=== PATIENT | male | born 1940 | race Hispanic/Latino ===

== ENCOUNTER 2018-09-22 17:32 | Inpatient (IN) | payer MEDICARE, OTHER ==
[~2018-09-22] VITALS: Ht 165.1 cm; Wt 82.8 kg
[2018-09-22] MEDS ORDERED: MECLIZINE HCL 12.5 MG TAB PO ONE (18:00)
[2018-09-22 19:08] LABS: BILIRUBIN,URINE NEGATIVE (NEGATIVE); CLARITY,URINE CLEAR (CLEAR); COLOR,URINE YELLOW (YELLOW); KETONES,URINE NEGATIVE (NEGATIVE); LEUKOCYTE ESTERASE ,URINE NEGATIVE (NEGATIVE); NITRITE,URINE NEGATIVE (NEGATIVE); PROTEIN,URINE DIPSTICK NEGATIVE (NEGATIVE); URINE UROBILINOGEN 0.2 mg/dL (0.2 - 1)
[2018-09-22 19:10] LABS: INR 0.89; PROTHROMBIN TIME 12.9 seconds (11.9-14.5)
[2018-09-22 19:11] LABS: PARTIAL THROMBOPLASTIN TIME 28.7 seconds (23.8-35.5)
--- NOTE | 2018-09-22 19:15 | Diagnostic Imaging Report ---
Exam: Head CT without contrast History: Blurry vision, unsteady gait Comparison studies: None Technique: Axial images were obtained from the skull base to the vertex. Coronal and sagittal images reconstructed from the axial data. Dose modulation, iterative reconstruction, and/or weight based adjustment of the mA/kV was utilized to reduce the radiation dose to as low as reasonably achievable. Radiation dose: Total DLP: 921 mGy*cm. Estimated effective dose: DLP x 0.015 Intravenous contrast: None Findings: Scalp: No abnormalities. Bones: No fractures, blastic or lytic lesions. Brain sulci: Mildly prominent but age appropriate. Ventricles: Mild compensatory dilatation. No hydrocephalus. Extra-axial spaces: No masses, no fluid collection. Parenchyma: No mass, acute hemorrhage or acute or chronic cortical vascular insults. A few scattered hypodensities in the supratentorial white matter are nonspecific but most compatible with chronic microvascular ischemic changes. Incidental punctate parietal calcification at the vertex without surrounding edema or mass effect compatible may reflect sequela of prior infection/information. Sellar/suprasellar region: No abnormalities. Craniocervical junction: Patent foramen magnum. No Chiari one malformation. Incidental findings: Atherosclerotic calcifications in the carotid siphons. Chronic mildly depressed left orbital floor fracture. IMPRESSION: No acute intracranial abnormalities. Signed by: Dr. Riley Khan M.D. on 09/22/2018 7:12 PM
--- NOTE | 2018-09-22 19:15 | Diagnostic Imaging Report ---
Examination: Single AP view of the chest. COMPARISON: Chest 2 views 08/14/2009 INDICATION: Blurry vision IMPRESSION: 1. Lines and Tubes: None 2. Lungs are well-inflated. Obscuration of the left hemidiaphragm which is similar to prior exam, likely secondary to prominent epicardial fat pad. Recommend chest PA and lateral for better evaluation. Right lung is clear. 3. Enlarged cardiac silhouette. Pulmonary vasculature is normal. 4. No acute bony abnormalities. Signed by: Dr. Shiva Yadav M.D. on 09/22/2018 7:12 PM
[2018-09-22] MEDS ORDERED: LEVOTHYROXINE150 MCG PO (19:19)
[2018-09-22] MEDS ORDERED: SIMVASTATIN20 MG PO (19:19)
[2018-09-22 19:21] LABS: ALANINE AMINOTRANSFERASE 24 IU/L (0-55); ALBUMIN 4.1 g/dL (3.5-5.0); ALBUMIN/GLOBULIN RATIO 1.4 (0.8-2.0); ALKALINE PHOSPHATASE 42 IU/L (40-150); BLOOD UREA NITROGEN 11 mg/dL (7-26); BUN/CREATININE RATIO 11 (6-25); CALCIUM 9.4 mg/dL (8.4-10.2); CARBON DIOXIDE 26 mmol/L (22-29); CHLORIDE 104 mmol/L (98-107); CREATINE KINASE 183 IU/L (30-200); EST GLOMERULAR FILTRATION RATE > 60 ML/MIN (60-); GLUCOSE 104 mg/dL (74-118); MAGNESIUM 2.9 MG/DL (1.3-2.1); SODIUM 140 mmol/L (136-145)
[2018-09-22 19:23] LABS: BASOPHILS % 0.5 % (0.0-1.0); EOSINOPHILS # (AUTO) 0.3 (0.0-0.4); EOSINOPHILS % 3.6 % (0.0-6.0); HEMATOCRIT 44.8 % (38.2-49.6); HEMOGLOBIN 14.7 g/dL (14.0-18.0); LYMPHOCYTES % 37.5 % (18.0-39.1); MEAN CORPUSCULAR HEMOGLOBIN 29.7 pg (28-32); MEAN CORPUSCULAR HGB CONC 32.8 g/dL (31-35); MEAN CORPUSCULAR VOLUME 90.5 fL (81-99); MONOCYTES # (AUTO) 0.6 (0.2-0.8); MONOCYTES % 6.8 % (4.4-11.3); NEUTROPHILS # (AUTO) 4.1 (2.1-6.9); NEUTROPHILS % 51.2 % (38.7-80.0); PLATELET COUNT 241 x10e3/uL (140-360); RED BLOOD COUNT 4.95 x10e6/uL (4.3-5.7); RED CELL DISTRIBUTION WIDTH 14.6 % (11.7-14.4)
[2018-09-22] MEDS ORDERED: OMEPRAZOLE40 MG (19:31)
[2018-09-22] MEDS ORDERED: LISINOPRIL2.5 MG PO (19:31)
[2018-09-22] MEDS ORDERED: METOPROLOL TART25 MG PO (19:31)
[2018-09-22] MEDS ORDERED: VITAMIN B-121000 MCG PO (19:31)
[2018-09-22] MEDS ORDERED: ASPIR 8181 MG (19:31)
[2018-09-22 20:00] LABS: THYROID STIMULATING HORMONE 0.798 uIU/mL (0.350-4.940)
[2018-09-22] MEDS: FAMOTIDINE 20 MG/2 ML VIAL IV SCH (20:00)
[2018-09-22] MEDS ORDERED: ONDANSETRON HCL INJ 2 MG/ML VIAL IV PRN (20:00)
--- NOTE | 2018-09-22 20:05 | Diagnostic Imaging Report ---
EXAMINATION: PA and lateral views of the chest. COMPARISON: AP chest performed same date. Chest 2 views 08/14/2009 CLINICAL HISTORY: Abnormal chest x-ray DISCUSSION: Lines/tubes: None. Lungs: The lungs are well inflated and clear. There is no evidence of pneumonia or pulmonary edema. Pleura: There is no pleural effusion or pneumothorax. Obscuration of the left hemidiaphragm secondary to epicardial fat pad unchanged since prior chest two views 08/14/2009. Heart and mediastinum: Stable enlargement of the cardiac silhouette. Pulmonary vasculature is normal. CABG changes Bones and soft tissues: No acute bony abnormalities. Degenerative changes in the thoracic spine. Midline sternotomy wires area IMPRESSION: Stable enlarged cardiac silhouette, without acute cardiopulmonary abnormalities. Signed by: Dr. Shiva Yadav M.D. on 09/22/2018 8:02 PM
--- OUTSIDE RECORDS SUMMARY | 2018-09-22 20:28 | XMS REPORT ---
[facility] Address Unknown Phone Unavailable Care Team Providers Care Breakdown Man Name Role Phone Eloy THOMAS Unavailable Unavailable Problems This patient has no known problems. Allergies, Adverse Reactions, Alerts This patient has no known allergies or adverse reactions. Medications This patient has no known medications. Results Test Description Test Time Test Comments Text Results Atomic Results Result Comments CHEST 2 VIEWS 2018-09-22 19:59:00 [place] [address] Patient Name: HUONG DELA CRUZ MR #: [id number] : 1940 Age/Sex: 77/M Req #: [id number] Adm Physician: Ordered by: ANGELO GUAJARDO MERCHANDISE STOCKER Report #: [id number] Location: ER Room/Bed: Procedure: [id number] DX/CHEST 2 VIEWS Exam Date: 09/22/18 Exam Time: 1944 REPORT STATUS: Signed EXAMINATION: PA and lateral views of the chest. COM PARISON: AP chest performed same date. Chest 2 views 08/14/2009 CLINICAL HISTORY: Abnormal chest x-ray DISCUSSION: Lines/tubes: None. Lungs: The lungs are well inflated and clear. There is no evidence of pneumonia or pulmonary edema. Pleura: There is no pleural effusion or pneumothorax. Obscuration of the left hemidiaphragm secondary to epicardial fat pad unchanged since prior chest two views 08/14/2009. Heart and mediastinum: Stable enlargement of the cardiac silhouette. Pulmonary vasculature is normal. CABG changes Bones and soft tissues: No acute bony abnormalities. Degenerative changes in the thoracic spine. Midline sternotomy wires area IMPRESSION: Stable enlarged cardiac silhouette, without acute cardiopulmonary abnormalities. Signed by: Dr. Brian Yadav M.D. on 09/22/2018 8:02 PM Dictated By: BRIAN YADAV MD 01 Transcribed By: VANESSA on 09/22/182001 COPY TO: ANGELO GUAJARDO NP CHEST SINGLE (PORTABLE) 2018-09-22 19:10:00 [place] [address] Patient Name: HUONG DELA CRUZ MR #: [id number] : 1940 Age/Sex: 77/M Req #: [id number] Adm Physician: Ordered by: ANGELO GUAJARDO MERCHANDISE STOCKER Report #: [id number] Location: ER Room/Bed: Procedure: [id number] DX/CHEST SINGLE (PORTABLE) Exam Date: 09/22/18 Exam Time: 1845 REPORT STATUS: Signed Examination: Single AP view of the chest. CO MPARISON: Chest 2 views 08/14/2009 INDICATION: Blurry vision IMPRESSION: 1. Lines and Tubes: None 2. Lungs are well-inflated. Obscuration of the left hemidiaphragm which is similar to prior exam, likely secondary to prominent epicardial fat pad. Recommend chest PA and lateral for better evaluation. Right lung is clear. 3. Enlarged cardiac silhouette. Pulmonary vasculature is normal. 4. No acute bony abnormalities. Signed by: Dr. Brian Yadav M.D. on 09/22/2018 7:12 PM Dictated By: BRIAN YADAV MD 11 Transcribed By: VANESSA on 09/22/181911 COPY TO: ANGELO GUAJARDO NP CT BRAIN WO 2018-09-22 19:07:00 [place] [address] Patient Name: HUONG DELA CRUZ MR #: [id number] : 1940 Age/Sex: 77/M Req #: [id number] Adm Physician: Ordered by: ANGELO GUAJARDO NP Report #: [id number] Location: ER Room/Bed: Procedure: [id number] CT/CT BRAIN WO Exam Date: 09/22/18 Exam Time: 1845 REPORT STATUS: Signed Exam: Head CT without contrast History: Blurry vision, uns teady gait Comparison studies: None Technique: Axial images were obtained from the skull base to the vertex. Coronal and sagittal images reconstructed from the axial data. Dose modulation, iterative reconstruction, and/or weight based adjustment of the mA/kV was utilized to reduce the radiation dose to as low as reasonably achievable. Radiation dose: Total DLP: 921 mGy*cm. Estimated effective dose: DLP x 0.015 Intravenous contrast: None Findings: Scalp: No abnormalities. Bones: No fractures, blastic or lytic lesions. Brain sulci: Mildly prominent but age appropriate. Ventricles: Mild compensatory dilatation. No hydrocephalus. Extra-axial spaces: No masses, no fluid collection. Parenchyma: No mass, acute hemorrhage or acute or chronic cortical vascular insults. A few scattered hypodensities in the supratentorial white matter are nonspecific but most compatible with chronic microvascular ischemic changes. Incidental punctate parietal calcification at the vertex without surrounding edema or mass effect compatible may reflect sequela of prior infection/information. Sellar/suprasellar region: No abnormalities. Craniocervical junction: Patent foramen magnum. No Chiari one malformation. Incidental findings: Atherosclerotic calcifications in the carotid siphons. Chronic mildly depressed left orbital floor fracture. IMPRESSION: No acute intracranial abnormalities. Signed by: Dr. Laure Khan M.D. on 09/22/2018 7:12 PM Dictated By: LAURE KHAN MD 11 Transcribed By: VANESSA on 09/22/181911 COPY TO: ANGELO GUAJARDO NP
[2018-09-22 21:40] VITALS: BP 152/70
[2018-09-22 21:50] VITALS: BP 152/70
--- NOTE | 2018-09-22 21:50 | NUR ---
Pt received from the ER. Pt A&O and in no apparent distress. Pt on RA and tele #2. All safety measures ensured, bed alarm on, and pt call martinez near. Pt encouraged to use call martinez for assistance.
[2018-09-22 23:55] VITALS: BP 104/55
[2018-09-23 04:45] VITALS: BP 104/50
[2018-09-23 05:29] LABS: BASOPHILS # (AUTO) 0.1 (0.0-0.1); BASOPHILS % 1.1 % (0.0-1.0); EOSINOPHILS # (AUTO) 0.3 (0.0-0.4); EOSINOPHILS % 5.1 % (0.0-6.0); HEMOGLOBIN 13.8 g/dL (14.0-18.0); LYMPHOCYTES # (AUTO) 2.6 (1.0-3.2); LYMPHOCYTES % 39.4 % (18.0-39.1); MEAN CORPUSCULAR HEMOGLOBIN 30.1 pg (28-32); MEAN CORPUSCULAR HGB CONC 33.7 g/dL (31-35); MEAN CORPUSCULAR VOLUME 89.5 fL (81-99); MONOCYTES # (AUTO) 0.7 (0.2-0.8); MONOCYTES % 10.9 % (4.4-11.3); NEUTROPHILS # (AUTO) 2.9 (2.1-6.9); NEUTROPHILS % 43.2 % (38.7-80.0); PLATELET COUNT 215 x10e3/uL (140-360); RED BLOOD COUNT 4.58 x10e6/uL (4.3-5.7); RED CELL DISTRIBUTION WIDTH 14.5 % (11.7-14.4)
[2018-09-23 06:01] LABS: CREATINE KINASE MB 1.3 ng/mL (0-5.0)
[2018-09-23 06:45] LABS: ALANINE AMINOTRANSFERASE 22 IU/L (0-55); ALBUMIN 3.3 g/dL (3.5-5.0); ALBUMIN/GLOBULIN RATIO 1.2 (0.8-2.0); ALKALINE PHOSPHATASE 39 IU/L (40-150); ANION GAP 10.2 mmol/L (8-16); BLOOD UREA NITROGEN 11 mg/dL (7-26); BUN/CREATININE RATIO 12 (6-25); CALCIUM 9.1 mg/dL (8.4-10.2); CARBON DIOXIDE 27 mmol/L (22-29); CHLORIDE 105 mmol/L (98-107); CHOL/HDL RATIO 4.2 (3.9-4.7); CHOLESTEROL 130 MD/DL (0-199); CREATININE, SERUM 0.94 mg/dL (0.72-1.25); EST GLOMERULAR FILTRATION RATE > 60 ML/MIN (60-); GLUCOSE 96 mg/dL (74-118); HDL CHOLESTEROL 31 MG/DL (40-60); LDL CHOLESTEROL 74 MG/DL (60-130); POTASSIUM 4.2 mmol/L (3.5-5.1); SODIUM 138 mmol/L (136-145); TRIGLYCERIDES 126 MG/DL (0-149)
[2018-09-23 08:10] VITALS: BP 116/54
[2018-09-23] MEDS: ASPIRIN 81 MG ENTERIC COATED PO SCH (08:25)
[2018-09-23] MEDS: FAMOTIDINE 20 MG/2 ML VIAL IV SCH (08:25)
--- NOTE | 2018-09-23 10:38 | NUR ---
SOCIAL WORK INITIAL ASSESSMENT USED CITIZEN OF [place] [employer] [place] [id number] Manager Of Corporate to bedside to discuss plan of care with patient/family. CM/SW role and care transitions discussed. Anticipated discharge plan discussed along with duration of care. CM/SW discussed patients right to make decisions in care. CM/SW work hours given. Patient lives: IN OWN HOUSE WITH FAMILY Admit/Transfer: FROM ED FROM HOME POA/Emergency contact: JENSEN [phone] Current/Previous Home Health: NONE PCP/Follow-up Care: RADHA Current/Previous DME: NONE Other Services: NONE Employment Status: RETIRED Areas of Concerns: NONE Referral Needs: NONE Education Needs: NONE IMM/FLOWERS given and signed (if applicable): NA Goal for discharge:RETURN HOME INDEPENDENTLY CM/SW left business card at the bedside with contact information. Name and number was also written on the patients whiteboard. Patient verbalized understanding of discussion. CM will follow-up with ongoing discharge and transition of care needs.
--- NOTE | 2018-09-23 10:54 | Diagnostic Imaging Report ---
MRI BRAIN WO HISTORY: TIA, diplopia, dizziness COMPARISON: Head CT 09/22/2018 TECHNIQUE: Sagittal T2, axial T2, axial T1, axial T2/FLAIR, axial gradient echo (or susceptibility weighted), coronal T2/FLAIR, and axial diffusion weighted MR images of the brain were obtained without contrast. DISCUSSION: Scalp/bone marrow: Unremarkable. Brain sulci: Mild prominent. Ventricles: Mild compensatory dilatation. Extra-axial spaces: No masses or fluid collections. Parenchyma: No abnormal signal intensities. No mass, hemorrhage, or acute vascular insults. Vessels: Normal flow voids in major arteries and veins. Sellar/Suprasellar region: No abnormalities. Craniocervical junction: No abnormalities. Incidental findings: Mild T2 hyperintensity in the right mastoid air cells may be due to a trace mastoid effusion. There is minimal mucosal thickening in the left maxillary sinus. IMPRESSION: 1. No acute intracranial abnormalities. 2. Mild supratentorial chronic microvascular ischemic change. Mild generalized cerebral volume loss. Signed by: Dr. Shahbaz Vega M.D. on 09/23/2018 10:51 AM
[2018-09-23 11:15] VITALS: BP 116/54
[2018-09-23 12:15] VITALS: BP 117/56
[2018-09-23] MEDS ORDERED: CLOPIDOGREL BISULFATE 75 MG TAB PO ONE (12:15)
--- NOTE | 2018-09-23 13:28 | History and Physical ---
PRIMARY CARE PROVIDER: Dr. Kacy Tai. CHIEF COMPLAINT: Gait abnormality, diplopia, dizziness and generalized weakness. HISTORY: Patient is a 77-year-old male with double vision for the past 3 days. Patient is also having some dizziness. He is wearing glasses. His last eye exam with within a year. The patient does have coronary disease. He had coronary artery bypass graft surgery 5-vessel many years ago. He is otherwise stable. He has not seen any real estate investor recently. PAST MEDICAL HISTORY: Coronary disease with previous bypass graft surgery. Hypertension, dyslipidemia, hypothyroidism. PAST SURGICAL HISTORY: Coronary artery bypass graft x5 vessels many years ago. SOCIAL HISTORY: Patient does not smoke or use alcohol. No recreational drug use. ALLERGIES: TO NO KNOWN ALLERGIES. HOME MEDICATIONS: List is reviewed. REVIEW OF SYSTEMS: Diplopia, dizziness and abnormal gait. PHYSICAL EXAMINATION: VITAL SIGNS: Temperature is 97, blood pressure 116/54, pulse rate is 53, respirations 20. GENERAL: The patient is not in acute distress. He is awake. HEENT: Normocephalic, atraumatic, anicteric. NECK: Supple grossly. PULMONARY: Clear. CARDIOVASCULAR: Regular rate and rhythm. ABDOMEN: Soft and unremarkable. EXTREMITIES: No cyanosis or edema. NEUROLOGIC: Diplopia. Otherwise, no other focal deficit. LABORATORY: Sodium is 138, potassium 4.2, chloride 105, bicarb 27, BUN is 11, creatinine 0.9, glucose 96. WBC 6.6, hemoglobin 13.8, hematocrit 41, platelet is 215. IMPRESSION: 1. Diplopia just started. The patient also has gait problem and dizziness. 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 2. Multiple chronic baseline problems including coronary disease with previous coronary artery bypass graft surgery times 5 vessels many years ago, dyslipidemia, hypertension, hypothyroidism. PLAN: MRI of the brain without contrast. Carotid Doppler, echocardiogram. Consultation with Dr. Ruvalcaba. Consultation with Dr. Brandon Pereira. We will monitor the patient closely. Job#: [id number] TANGELA
--- NOTE | 2018-09-23 13:37 | Consultation ---
DATE OF CONSULTATION: September 23, 2018 REASON FOR CONSULTATION: History of CAD. CHIEF COMPLAINT: Double vision. HISTORY: This is a 77-year-old male with a history of CAD, status post CABG in 2009, hypertension, hyperlipidemia, prediabetic, hypothyroidism. The patient presents to [facility] ER with apparent complaints of double vision times 3 days. The patient was seen in room with family at bedside. Reports again double vision since Wednesday. Denies any other symptoms. No chest pain. No shortness of breath. No unilateral weakness or palpitations or shortness of breath. He reports that he is pretty healthy. He is very active. MRI was noted and showing chronic microvascular ischemic changes. However, no acute intracranial abnormalities were documented. PAST MEDICAL HISTORY: CAD, status post CABG, hyperlipidemia, prediabetic, hypothyroidism, hypertension. SURGICAL HISTORY: CABG in 2009 at [facility] by Dr. Valle. Apparently, also prostate surgery. SOCIAL HISTORY: He is . He is retired. He denies any tobacco use. Occasional alcohol use. FAMILY HISTORY: Mother apparently at age 54 apparently from complications from medication which was given per the patient report. The father at age 95. Reported healthy family history. Also, family history of sister with cardiac arrhythmias. ALLERGIES: NO KNOWN ALLERGIES. MEDICATIONS 1. Aspirin 81 mg once a day. 2. Vitamin B12 2000 mcg p.o. daily. 3. Levothyroxine 150 mcg daily. 4. Lisinopril 2.5 mg daily. 5. Metoprolol 25 mg p.o. b.i.d. 6. Omeprazole 20 mg daily. 7. Simvastatin 20 mg daily. REVIEW OF SYSTEMS GENERAL: Denies any weight changes, any fatigue, weakness, fever, chills, night sweats, skin rash. No rashes. No sore or moles. HEENT: Denies any nausea or vomiting. Positive for vision changes and double vision. Denies any earaches, any tinnitus, vertigo, any sneezing, epistaxis, any sore throat, swollen neck. CARDIAC: Denies any palpitations, any chest pains, any orthopnea, PND, or lower extremity edema. Positive for dyspnea on exertion. RESPIRATORY: Denies any shortness of breath, any wheezing, coughing, hemoptysis. GI: Reports good appetite. No nausea or vomiting. No hematemesis, melena. URINARY: Positive for frequency and urgency. Denies any hematuria or dysuria. VASCULAR: Denies any lower extremity edema, claudication or varicose veins. MUSCULOSKELETAL: Denies any muscle weakness. Positive for generalized joint pains. NEUROLOGIC: Denies any numbness, tingling, tremors, weakness, paralysis, fainting, blackouts. HEMATOLOGY: Denies any anemia, any easy bruising. ENDOCRINE: Denies any heat or cold intolerance, any polyuria, polydipsia, polyphagia. PHYSICAL EXAMINATION VITALS: Height 68 inches, weight 185 pounds, BMI 28. Vital signs: Current temperature 96.7, pulse 53, respiratory rate 18, blood pressure 116/54, pulse ox 97% on room air. GENERAL: Appears stated age. Reliable informant. No acute distress. SKIN: No rashes or bruises noted. HEENT: Normocephalic. Pupils are equal and reactive. Extraocular motor intact. Oral mucosa pink. No JVD noted. No carotid bruits. Thyroid midline. No thyromegaly. HEART: Regular rate and rhythm. Soft systolic murmur noted in the right upper sternal border. PMI in about the 4th or 5th intercostal space. LUNGS: Bilateral breath sounds clear to auscultation. No wheezes. No rales. No crackles. ABDOMEN: Soft, nontender and nondistended. MUSCULOSKELETAL: Good muscle strength throughout. No lower extremity swelling or edema. VASCULAR: Plus 2 bilateral radial pulses, +1 DP and PT pulses bilaterally. NEUROLOGIC: Cranial nerves II-XII seem intact. Sternotomy scar. LABS: White count is 6.6, hemoglobin 13.8, hematocrit 41, and platelets 215,000. Chemistry: Sodium 138, potassium 4.2, BUN 11, creatinine 0.9, glucose 96. Troponin is 0.06, 0.05. TSH 0.7. EKG showing sinus rhythm with a right bundle branch block and inverted T-waves in the anterolateral leads. Brain MRI showing mild chronic microvascular ischemic changes. No acute intracranial abnormalities. IMAGING: Chest x-ray with no acute findings. CT of brain with no acute intracranial abnormalities. ASSESSMENT AND PLAN 1. Double vision. 2. Coronary artery disease: Status post coronary artery bypass graft. 3. Hypertension. 4. Hyperlipidemia. 5. Hypothyroidism. PLAN: Patient presents with double vision since Wednesday. Denies any anginal symptoms. Reports he is very healthy and very active. Cardiac enzymes are negative. Will go ahead and do a carotid to evaluate for carotid disease. Also, will do an echo to evaluate for heart structure and function. Will continue the patient's cardiac meds of aspirin, beta arianna with parameters, lisinopril with parameters, statin therapy. Will go ahead and place the patient on Plavix. Since the patient with negative enzymes and no anginal symptoms, will have the patient follow up in the office for stress test to complete ischemic evaluation if the patient desires. Continue tele monitoring. Thank you very much for this consult. Will follow the patient's progression. DICTATED BY LAURE YANCEY NP Job#: [id number] [place]
[2018-09-23 14:05] LABS: CREATINE KINASE MB 1.2 ng/mL (0-5.0)
--- NOTE | 2018-09-23 14:29 | Consultation ---
DATE OF CONSULTATION: September 23, 2018 NEUROLOGY CONSULTATION HISTORY OF PRESENT ILLNESS: Mr. Kimbrough is a 77-year-old right-hand dominant man with a past medical history significant for hypertension, hyperlipidemia, coronary artery disease with a prior myocardial infarction, admitted to [facility] on September 22, 2018, with double vision. Three days prior to admission, the patient experienced the abrupt onset of binocular horizontal diplopia. The diplopia is not constant. It only occurs, or is more likely to occur, when looking towards the left. Other than mild impairment of balance, Mr. Kimbrough does not report other symptoms associated with the diplopia. Specifically, he does not report a visual field cut or other disturbance, dysarthria, aphasia, facial droop, hemiparesis, hemihypoesthesia, impairment of gait, dizziness, or confusion. After his symptoms persisted for 2 days, Mr. Kimbrough reported to the emergency center at [facility] for further evaluation of his symptoms. Upon arrival in the emergency center, the patient was afebrile with a blood pressure of 121/72 mmHg and pulse is 62 beats per minute. His neurological examination is documented as being nonfocal. A CT of the brain without contrast was performed, but did not show evidence of recent large territorial ischemia or hemorrhage. Mr. Kimbrough was admitted to [facility] for further evaluation and treatment of his symptoms. Due to his history of coronary artery disease, the patient does take aspirin 81 mg by mouth daily. Mr. Kimbrough endorses his compliance with this treatment. REVIEW OF SYSTEMS: Possible memory impairment, diplopia as described in the history of present illness, impairment of balance. Otherwise, the 12-point review of systems is negative. PAST MEDICAL HISTORY: Hypertension, hyperlipidemia, coronary artery disease with a prior myocardial infarction, thyroid disease, benign prostatic hypertrophy. PAST SURGICAL HISTORY: Four-vessel CABG, dilatation of the urethra. PAST HOSPITALIZATIONS: Surgeries/procedures as listed. FAMILY MEDICAL HISTORY: The patient's paternal and maternal grandparents are . Their medical histories are unknown. The patient's father is from natural causes. Mr. Kimbrough reports his father was an alcoholic. Patient's mother is at approximately 45 years of age from an adverse reaction to a medication. Mr. Kimbrough has 7 siblings, 3 brothers and 4 sisters, all of whom are alive. The eldest sister has a cardiac arrhythmia (atrial fibrillation). The remaining 3 sisters are healthy. The patient does not know the medical histories of his brothers. Mr. Kimbrough has 6 children, 3 sons and 3 daughters, all of whom are alive and healthy. SOCIAL HISTORY: The patient is . He is retired. He does not report current or prior tobacco or recreational drug use. Mr. Kimbrough endorses occasional alcohol use. HOME MEDICATIONS 1. Aspirin 81 mg by mouth daily. 2. Vitamin B12 2000 mcg by mouth daily. 3. Levothyroxine 150 mcg by mouth daily. 4. Lisinopril 2.5 mg by mouth daily. 5. Metoprolol 25 mg by mouth twice daily. 6. Omeprazole 20 mg by mouth daily. 7. Simvastatin 20 mg by mouth daily. ALLERGIES: NO KNOWN DRUG ALLERGIES. NO KNOWN FOOD ALLERGIES. NO KNOWN ALLERGIES TO LATEX. NO KNOWN ALLERGIES TO IODINE OR OTHER CONTRAST MATERIALS. PHYSICAL EXAMINATION VITAL SIGNS: Height 68 inches, weight 185 pounds, BMI 28.1 kg per meter squared, blood pressure 116/54 mmHg, pulse 53 beats per minute, respiratory rate 18 breaths per minute, oxygen saturation 97% on room air. GENERAL: The patient is awake and alert. Does not appear distressed. Overweight. HEENT: Normocephalic and atraumatic. Pupils are equal, round, and reactive to light. Moist mucous membranes. NECK: Supple. No appreciable thyromegaly. No appreciable carotid bruits. CARDIOVASCULAR: S1 and S2, regular rate and rhythm. No murmurs, rubs, or gallops. RESPIRATORY: Clear to auscultation bilaterally. No wheezes, rhonchi, or rales. EXTREMITIES: The skin is warm and dry. No clubbing, cyanosis, or edema. The posterior tibial and dorsalis pedis pulses are 2+ and symmetric. SKIN: No rashes or lesions. NEUROLOGIC: Memory/attention: The patient is awake and alert. Oriented to person, place, time, and situation. CRANIAL NERVES: Cranial nerve I not tested. Cranial nerve II, III, IV, and : Pupils are equal and round, react briskly to light (from 4 mm to 2 mm). Extraocular movements are intact except as follows: Partial left cranial nerve palsy. No nystagmus. Cranial nerve V: Sensation to light touch and pinprick is intact in the bilateral V1 through V3 distributions. Strength of the temporalis and masseter muscles is within normal limits. Cranial nerve VII: The face is symmetric as are all facial movements. Strength is within normal limits. Cranial nerve VIII: Hearing is intact to finger rub bilaterally. Cranial nerve IX and X: The soft palate elevates equally and symmetrically. Cranial nerve XI: Normal strength of the bilateral sternocleidomastoid and trapezius muscles. Cranial nerve XII: The tongue protrudes midline and moves symmetrically from side to side. STRENGTH: Bulk is normal. Strength is 5/5 in the bilateral deltoids, biceps, triceps, wrist flexors and extensors, finger flexors and extensors, intrinsic hand muscles, hip flexors, knee flexors and extensors, ankle dorsiflexion and plantar flexion, intrinsic foot muscles. Tone is normal. DTRs: Are 2+ and symmetric at the triceps, biceps, brachioradialis, and patellas. Deep tendon reflexes are 1+ and symmetric at the Achilles. Plantar responses are flexor bilaterally. SENSATION: Intact to light touch and pinprick in both arms and both legs. CEREBELLAR: Bckbbj-[id number] and heel-rock movements are intact without dysmetria or other impairment. GAIT: Spontaneous gait is intact, appears steady. SPEECH: Spontaneous speech is normal without appreciable dysarthria or aphasia. Repetition is intact. INVOLUNTARY MOVEMENTS: None. PRONATOR DRIFT: None. LABORATORY DATA: The most recent comprehensive metabolic panel is significant for an alkaline phosphatase of 39, a total protein is 6.1, and an albumin of 3.3. Creatinine kinase 183, BUN 46. CK-MB 1.6, 1.3. Troponin I 0.061, 0.058. TSH 0.798. Total cholesterol 130, triglycerides 126, LDL cholesterol 74, HDL cholesterol 31. The CBC with differential and platelets reveals a white blood cell count 6.62 with a right shift with 43.2% neutrophils, 39.4% lymphocytes, 10.9% monocytes, 5.1% eosinophils, and 1.1% basophils. The hemoglobin and hematocrit are 13.8 and 41, respectively. The platelet count is 215,000. The coagulation profile is within normal limits. A urinalysis is significant only for a specific gravity of 1.005. DIAGNOSTIC STUDIES: Electrocardiogram on September 22, 2018, Normal sinus rhythm. First-degree AV block. Right bundle branch. Chest x-ray on September 22, 2018: 1. Lines and tubes: None. 2. Lungs are well inflated. Obscuration of the left hemidiaphragm which is similar to prior exam, likely secondary to prominent epicardial fat pad. Recommend chest PA and lateral for better evaluation. Right lung is clear. 3. Enlarged cardiac silhouette. Pulmonary vasculature is normal. 4. No acute bony abnormalities. CT of the brain without contrast on September 22, 2018, on my review, there is no evidence of recent large territorial ischemia, hemorrhage, mass, or mass effect. There are no remote vascular insults. There is mild diffuse cerebral atrophy with compensatory dilatation of the ventricles, appropriate for the patient's age. There are findings compatible with mild to moderate chronic small vessel ischemic disease. MRI of the brain without contrast on September 23, 2018, on my review, there is no evidence of recent large territorial ischemia, hemorrhage, mass or mass effect. There are no remote large territorial vascular insults. There is diffuse cerebral atrophy with compensatory dilatation of the ventricles, appropriate for the patient's age. There are scattered, nonspecific T2/flair hyperintense foci of the deep white matter compatible with mild chronic small vessel ischemic disease. ASSESSMENT AND PLAN: Mr. Kimbrough is a 77-year-old right-hand dominant man with multiple vascular risk factors admitted with the acute onset of binocular horizontal diplopia secondary to a partial left cranial nerve palsy, which is probably due to ischemia. Other than a partial left cranial nerve palsy, the patient's neurological examination is nonfocal. His laboratory data and other diagnostic studies have been reviewed and are documented above. RECOMMENDATIONS: Are as follows: 1. A hemoglobin A1c will be ordered to complete the stroke evaluation. 2. An echocardiogram has been ordered and is pending. 3. A bilateral carotid artery ultrasound with Doppler has been ordered and is pending. 4. Agree with the addition of Plavix 75 mg by mouth daily for stroke prophylaxis to the patient's medication regimen. 5. The patient's blood pressures are currently at goal of less than 140/90 mmHg. Consider allowing permissive hypertension pending the outcome of vessel imaging. 6. The patient's goal total cholesterol is less than 200 with a LDL less than 70. Mr. Kimbrough's cholesterol goals are met. Treatment with his home medication of simvastatin 20 mg by mouth at bedtime daily will be continued. 7. Follow up the results of the hemoglobin A1c. The goal hemoglobin A1c is less than 7. Tight glycemic control is recommended while the patient is hospitalized. 8. Speech and physical therapy consultations are not necessary secondary to the patient having no deficits in either of these areas. 9. GI prophylaxis with Protonix 40 mg by mouth daily. DVT prophylaxis with Lovenox 40 mg subcutaneously daily. 10. Defer treatment of the remaining medical comorbidities to the primary and other services following the patient. Thank you for this consultation. I will continue to follow the patient while he remains in the hospital. Time spent was 70 minutes. Job#: [id number] JORGE LESLIE
--- NOTE | 2018-09-23 15:20 | NUR ---
Nutrition Screen Note RD Recommendation for Physician: -Continue ADA diet as ordered Plan of Care: RD following, monitoring for tolerance and adequacy Nutrition reason for involvement: Nutrition Risk Trigger MST Primary Diagnose(s): Double vision PMH: Coronary disease with previous bypass graft surgery, hypertension, dyslipidemia, hypothyroidism, prediabetic Ht: 68in Wt: 185lb BMI: 28.1kg/m2 IBW: 154lb RD Assessment: (09/23) Chart reviewed. Labs and meds reviewed. 77yo M, who is admitted for double vision. HbA1c at 6.0%. Visited pt in the room. Pt reports good appetite with ~75-100% meal intake. No change in diet or weight loss [employer] WORK[employer]. No GI complains noted. LBM 09/23, normal per pt. Pt denies any chewing or swallowing difficulty. Will continue to monitor and follow. Current Diet: ADA diet Malnutrition Evaluation (09/23/2018) The patient does not meet criteria for a specified degree of malnutrition at this time. Will re-evaluate at follow-up as appropriate. Diet Education Needs Assessment: Diet education not indicated. Nutrition Care Level: low Signed: Regina Huffman, MS, RD, LD
[2018-09-23] MEDS: METOPROLOL TARTRATE 25 MG TAB PO SCH (15:28)
[2018-09-23 15:35] VITALS: BP 105/56
--- NOTE | 2018-09-23 15:43 | NUR ---
Pt received from obs at this time. Pt is aox4 and able to verbalize needs. Denies any pain at this time. 0 s/s of acute distress noted.
--- NOTE | 2018-09-23 15:45 | NUR ---
Handoff report to nurse IAN Pacheco verbalized understanding.
[2018-09-23] MEDS ORDERED: ENOXAPARIN SOD INJ 40 MG/0.4 ML SYR SC SCH (17:00)
[2018-09-23 20:59] VITALS: BP 108/66
[2018-09-23] MEDS ORDERED: SIMVASTATIN 20 MG TAB PO SCH (21:00)
[2018-09-24 00:41] VITALS: BP 128/63
[2018-09-24] MEDS ORDERED: LEVOTHYROXINE SODIUM 75 MCG TAB PO SCH (06:00)
[2018-09-24 06:21] VITALS: BP 127/66
[2018-09-24 08:11] VITALS: BP 149/74
[2018-09-24 09:00] VITALS: BP 149/74
[2018-09-24] MEDS ORDERED: CLOPIDOGREL BISULFATE 75 MG TAB PO SCH (09:00)
[2018-09-24] MEDS ORDERED: CYANOCOBALAMIN 1,000 MCG TAB PO SCH (09:00)
[2018-09-24] MEDS ORDERED: NON-FORMULARY MEDICATION (Levothyroxine Sodium 150 MCG) PO SCH (09:00)
[2018-09-24] MEDS ORDERED: PANTOPRAZOLE SOD 40 MG TABEC PO SCH (09:00)
[2018-09-24] MEDS ORDERED: LISINOPRIL 2.5 MG TAB PO SCH (09:00)
[2018-09-24] MEDS ORDERED: SIMVASTATIN 20 MG TAB PO SCH (09:00)
[2018-09-24] MEDS: METOPROLOL TARTRATE 25 MG TAB PO SCH (09:02)
[2018-09-24] MEDS: ASPIRIN 81 MG ENTERIC COATED PO SCH (09:02)
[2018-09-24] MEDS ORDERED: PLAVIX75 MG PO (10:47)
--- NOTE | 2018-09-24 11:00 | NUR ---
Discharge instructions and prescriptions were given to the patient and his , they verbalized understanding. IV to the left ac was removed with tip intact.
--- NOTE | 2018-09-24 11:20 | NUR ---
Patient left the floor via wheelchair, he is discharged home.
--- NOTE | 2018-09-24 11:56 | Discharge Summary ---
PRIMARY CARE PHYSICIAN: Dr. Dr. Kacy Maynard. ATTENDING PHYSICIAN: Dr. Ghassan Combs. CONSULTANTS 1. Dr. Gia Ruvalcaba. 2. Dr. Brandon Pereira. FINAL DIAGNOSES: Diplopia secondary to left cranial nerve sixth palsy probable secondary to ischemia not evidence on MRI, however. The ischemia may be small enough where we are not able to tell. The patient was only on aspirin and simvastatin at home. He will add on Plavix 75 mg daily. SUMMARY: The patient is a 77-year-old right-handed dominant man with multiple vascular risk factor including coronary disease with previous coronary artery bypass graft surgery. Came in with acute onset of diplopia. The patient examination by Dr. 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 The patient had multiple workup done. Echocardiogram showed ejection fraction of approximately 55%. Carotid Doppler there is no evidence of significant stenosis. Multiple tests also including brain MRI and CT brain as well. There is no acute finding. The patient brain MRI showed that he had a mild supratentorial chronic microvascular ischemic changes, mild generalized cerebral volume loss as well. Patient is otherwise stable. He is having some improvement on his diplopia. Diplopia caused dizziness which is improving. The patient is able to ambulate. His gait has improved as well. The patient is stable at discharge home today. Follow up with Dr. Maynard as an outpatient. He will resume his home medication including aspirin and simvastatin. He will add on Plavix 75 mg once a day. CONDITION ON DISCHARGE: The patient is stable, discharge home today. Discussed with patient at length. Job#: [id number] JULISA
== END 2018-09-24 11:19 | disposition home or self-care (01) | DRG 69 ==
LOC: ER 17:32 → ERHOLD 19:57 → INTOOBSV 19:57 → IMCU 21:40 → OBSVTOIN 09-23 09:06 → MED/SURG2 09-23 15:46
PROVIDERS: ADMIT Internal Medicine; ATTEND Internal Medicine
DX: I67.82 Cerebral ischemia (principal); H49.22 Sixth [abducent] nerve palsy, left eye; I25.10 Atherosclerotic heart disease of native coronary artery without angina pectoris; Z95.1 Presence of aortocoronary bypass graft; E03.9 Hypothyroidism, unspecified; H53.2 Diplopia; N40.0 Benign prostatic hyperplasia without lower urinary tract symptoms; I10 Essential (primary) hypertension; E78.5 Hyperlipidemia, unspecified; I25.2 Old myocardial infarction; Z79.82 Long term (current) use of aspirin
CPT/HCPCS: 36415; 70450; 70551; 71045; 71046; 80053; 80061; 81001; 82550; 82553; 82948; 83036; 83735; 84443; 84484; 85025; 85610; 85730; 87086; 93005; 93306; 93880; 99284; G0378; J1650; J2405

== ENCOUNTER → 2022-01-29 | Day surgery (SDC) | payer MEDICARE, OTHER ==
[2022-01-27 08:56] LABS: BASOPHILS % 0.6 % (0.0-1.0); EOSINOPHILS # (AUTO) 0.2 (0.0-0.4); EOSINOPHILS % 3.4 % (0.0-6.0); HEMATOCRIT 46.8 % (38.2-49.6); HEMOGLOBIN 15.2 g/dL (14.0-18.0); LYMPHOCYTES # (AUTO) 2.6 (1.0-3.2); LYMPHOCYTES % 37.8 % (18.0-39.1); MEAN CORPUSCULAR HEMOGLOBIN 30.6 pg (28-32); MEAN CORPUSCULAR HGB CONC 32.5 g/dL (31-35); MEAN CORPUSCULAR VOLUME 94.4 fL (81-99); MONOCYTES # (AUTO) 0.4 (0.2-0.8); MONOCYTES % 6.2 % (4.4-11.3); NEUTROPHILS # (AUTO) 3.5 (2.1-6.9); NEUTROPHILS % 51.9 % (38.7-80.0); PLATELET COUNT 213 x10e3/uL (140-360); RED BLOOD COUNT 4.96 x10e6/uL (4.3-5.7); RED CELL DISTRIBUTION WIDTH 13.9 % (11.7-14.4)
[~2022-01-29] MED LIST: ASPIR 8181 MG; ATORVASTATIN CA20 MG PO; LEVOTHYROXINE150 MCG PO; LIDOCAINE HCL 2% LOCAL INJ 5 ML SDV VIAL INJ ONE; LISINOPRIL2.5 MG PO; METFORMIN HCL500 MG PO; METOPROLOL TART25 MG PO; MIDAZOLAM HCL 2 MG/2 ML VIAL ONE; OMEPRAZOLE40 MG; PLAVIX75 MG PO; PROPOFOL IV EMULSION 10 MG/ML 20 ML VIAL ONE; PYRIDOSTIGMINE60 MG PO; SIMETHICONE 40 MG/0.6 ML BTL ONE; SIMVASTATIN20 MG PO; SYNTHROID125 MCG PO; VITAMIN B-121000 MCG PO
[2022-01-29 07:33] VITALS: BP 126/52
== END | disposition home or self-care (01) ==
LOC: OR 07:10
PROVIDERS: ATTEND Internal Medicine Gastroenterology
DX: Z12.11 Encounter for screening for malignant neoplasm of colon (principal); K63.5 Polyp of colon; K64.8 Other hemorrhoids; K21.9 Gastro-esophageal reflux disease without esophagitis; Z71.3 Dietary counseling and surveillance; G47.33 Obstructive sleep apnea (adult) (pediatric); I25.810 Atherosclerosis of coronary artery bypass graft(s) without angina pectoris; I25.2 Old myocardial infarction; E11.9 Type 2 diabetes mellitus without complications; I10 Essential (primary) hypertension; E66.3 Overweight; Z01.810 Encounter for preprocedural cardiovascular examination; Z01.812 Encounter for preprocedural laboratory examination; Z20.822 Contact with and (suspected) exposure to COVID-19; Z79.02 Long term (current) use of antithrombotics/antiplatelets; Z79.84 Long term (current) use of oral hypoglycemic drugs; Z79.899 Other long term (current) drug therapy; Z68.28 Body mass index [BMI] 28.0-28.9, adult; Z95.1 Presence of aortocoronary bypass graft
CPT/HCPCS: 36415; 45384; 82948; 85025; 93005; J2001; J2250; U0002